=== PATIENT | female | born 1960 | race Caucasian/White ===

== ENCOUNTER → 2016-07-17 | Outpatient (CLI) | payer MEDICARE, OTHER ==
[~2016-07-17] MED LIST: AMIT50TA3 PO; AMLO5TAB2 PO; ASPI1POW10 PO; ASPI1TAB69 PO; ASPI325T PO; BENA25TA3 PO; ESOM1CAP6 PO; FURO1TAB62 PO; GABA600T PO; LEVO125T4 PO; LOVA20TA PO; METF-382 PO; MORP15TA73 PO; MORP1TAB24 PO; MORP1TAB25 PO; POTA-245 PO; SUMA100T2 PO; VENL100T PO; VITACAP7 PO; ZOLM5TAB2 PO
[2016-07-17 11:07] LABS: APTT (PATIENT) 23.7 SEC (24.3-30.1); PROTHROMBIN TIME - PATIENT 10.8 SEC (9.8-11.6)
[2016-07-17 11:13] LABS: BACTERIA, URINE RARE /hpf; BLOOD, URINE SMALL (NEG); GLUCOSE,URINE NEG (NEG); KETONE, URINE NEG (NEG); NITRITE,URINE NEG (NEG); PH, URINE 7.5 (5.0-8.5); SQUAMOUS EPITHELIAL CELL URINE 1 /hpf (0-5); URINE COLOR YELLOW (YELLW/STRAW)
[2016-07-17 11:14] LABS: COMMENT (UR) CULT NOT INDICATED; CULTURE IF INDICATED CULT NOT INDICATED
[2016-07-17 11:22] LABS: AUTOMATED NEUTROPHIL # 4.8 TH/MM3 (1.8-7.7); BASOPHIL # 0.1 TH/MM3 (0-0.2); BASOPHIL % 1.1 % (0.0-2.0); EOSINOPHIL # 0.2 TH/MM3 (0-0.4); HEMATOCRIT 39.9 % (35.0-46.0); HEMO FLAGS DIFF FINAL; LYMPH % 28.5 % (9.0-44.0); LYMPHOCYTE # 2.2 TH/MM3 (1.0-4.8); MEAN CORPUSCULAR HGB CONC 33.3 % (32.0-36.0); MONO % 4.6 % (0.0-8.0); NEUT % 62.8 % (16.0-70.0); PLATELET COUNT 376 TH/MM3 (150-450); RED BLOOD COUNT 4.75 MIL/MM3 (4.00-5.30); RED CELL DISTRIBUTION WIDTH 16.3 % (11.6-17.2); WHITE BLOOD COUNT 7.6 TH/MM3 (4.0-11.0)
[2016-07-17 11:28] LABS: ALKALINE PHOSPHATASE 112 U/L (45-117); ALT (GPT) 15 U/L (10-53); ANION GAP 7 MEQ/L (5-15); AST (GOT) 7 U/L (15-37); BICARBONATE 29.9 MEQ/L (21.0-32.0); BLOOD UREA NITROGEN 11 MG/DL (7-18); CHLORIDE 106 MEQ/L (98-107); GLOMERULAR FILTRATION RATE 51 ML/MIN (>89); GLUCOSE,FASTING 99 MG/DL (74-99); POTASSIUM 4.5 MEQ/L (3.5-5.1); SODIUM (NA) 143 MEQ/L (136-145); TOTAL BILIRUBIN ADULT 0.3 MG/DL (0.2-1.0)
--- NOTE | 2016-07-17 12:08 | RADRPT ---
EXAM DATE/TIME: 07/17/2016 11:37 [place] COMPARISON: No previous studies available for comparison. INDICATIONS : Evaluate for pneumonia, pneumothorax, and communicable disease. Preop for spinal stimulator replaceme nt. MEDICAL HISTORY : None. SURGICAL HISTORY : Spinal stimulator. ENCOUNTER: Initial ACUITY: 1 day PAIN SCORE: 0/10 LOCATION: Bilateral chest FINDINGS: PA and lateral views of the chest demonstrate the lungs to be symmetrically aerated without evidence of mass, infiltrate or effusion. The cardiomediastinal contours are unremarkable. Spinal stimulator is noted. No rib fractures are seen on the right. CONCLUSION: No acute disease. Eulogio Pickering MD FACR on July 17, 2016 at 12:05 Board Certified Radiologist. This report was verified electronically.
--- NOTE | 2016-07-17 14:54 | EKG ---
Date Performed: 07/17/2016 Time Performed: 10:55:27 PTAGE: 56 years EKG: Sinus rhythm LOW QRS VOLTAGE IN PRECORDIAL LEADS PATTERN CONSISTENT WITH PULMONARY DISEASE ABNORMAL ECG NO PREVIOUS TRACING DOCTOR: Chadwick Jimenez Interpretating Date/Time 07/17/2016 14:53:03
== END ==
LOC: CPRE 10:17
PROVIDERS: ATTEND Neurological Surgery
DX: Z01.810 Encounter for preprocedural cardiovascular examination (principal); Z18.12 Retained nonmagnetic metal fragments; G89.4 Chronic pain syndrome; R94.31 Abnormal electrocardiogram [ECG] [EKG]
CPT/HCPCS: 36415; 71020; 80053; 81001; 85025; 85610; 85730; 93005

== ENCOUNTER → 2016-07-23 | Day surgery (SDC) | payer MEDICARE, OTHER ==
[~2016-07-23] VITALS: Ht 162.6 cm; Wt 111.7 kg
[~2016-07-23] MED LIST changes: +ACETAMINOPHEN 1000 MG/100 ML VIAL IV ONE; +ARTIFICIAL TEARS OPTH OINT 3.5 APPLIC/3.5 GM TUBO ONE; +BUPIVACAINE HCL PF 0.5% 30 ML VIAL ONE; +CLINDAMYCIN INJ 600 MG in SODIUM CHLORIDE 0.9% INJ 100 ML IV SCH; +FAMOTIDINE 20 MG/2 ML VIAL ONE; +GELFOAM SIZE 100 ONE; +INSULIN HUMAN REGULAR 1,000 UNITS/10 ML VIAL SQ PRN; +KETAMINE HCL 500 MG/5 ML VIAL ONE; +LACTATED RINGER'S 1000 ML IV SCH; +LIDOCAINE 1%/EPINEPHrine 1:100,000 SOLN 30 ML VIAL ONE; +METOPROLOL TARTRATE 25 MG TAB PO PRN; +MIDAZOLAM HCL 2 MG/2 ML VIAL ONE; +PROPOFOL 200 MG/20 ML AMP IV ONE; +RESP: ALBUTEROL 2.5 MG/IPRATROPIUM 0.5 MG NEB (SCH) ONE; +SODIUM CHLORID 0.9% 500 ML IV SCH; +SODIUM CHLORIDE 0.9% INJ 100 ML ONE; +THROMBIN (TOPICAL) 5,000 UNIT VIAL ONE; -ZOLM5TAB2 PO; +fentaNYL CITRATE 250 MCG/5 ML AMP ONE
[2016-07-23 07:03] VITALS: BP 124/70; PULSE 75; RESP 18; TEMP 98.1; O2SAT 98
[2016-07-23 10:30] VITALS: BP 131/79; PULSE 89; RESP 16; TEMP 97.6; O2SAT 96
--- NOTE | 2016-07-26 13:45 | MP ---
cc: SAMUEL WHITFIELD MD, SANJAY S. M.D. DATE OF SURGERY: 07/23/2016. PREOPERATIVE DIAGNOSIS: Chronic pain syndrome. POSTOPERATIVE DIAGNOSIS: Chronic pain syndrome. OPERATIVE PROCEDURE PERFORMED: Removal of Protege battery and replacement with a Proclaim size IPG from [facility], reference number is 3660, serial number [id number]. Expiration 06/28/2018. SURGEON: Samuel Whitfield MD. ANESTHESIA: MAC. INDICATIONS FOR THE PROCEDURE: The patient is a very pleasant 56-year-old lady with successful relief of back pain and leg pain with a Penta lead centered on T8-9. She had good pain relief until her battery started to have some connection problems, which could not be recaptured with reprogramming. The battery was also sometimes heating up. She was taken to the operating room for replacement with the Proclaim battery. DESCRIPTION OF THE PROCEDURE IN DETAIL: The patient was brought to the operating room and placed supine on the operating room table. Anesthesia made her comfortable and she position herself on her side. Her previous battery was placed in the lower back above the buttocks. It was removed for her convenience to the mid axillary line below the waist in the fat pad above the fascia. Both incisions were prepped with iodine then rinsed and then prepped with ChloraPrep and allowed to dry. Both incisions were infiltrated with 1% lidocaine with epinephrine in a one-to-one mixture with 0.5% Marcaine. A total of 40 mL of local was used during the case. The first incision was made at the posterior axillary line and measured 5 cm in length. The incision was made with a 15 blade and carried down through the subcutaneous dermis and fat with the monopolar cautery. Th small pocket approximating the size of the IPG was made with the monopolar cautery. The wound was irrigated. The previous Protege site was opened with a #15 blade. The battery was explanted. The leads were then tunneled with a shunt tunneler to the new IPG pocket. The connection was made with the new Proclaim IPG and secured with a torque screwdriver. Impedances were checked and were found to be in the 300 to 400 Ohm range. The IPG was then secured in its pocket. The wounds were closed at the dermis with 2-0 Vicryl sutures and at the skin level with 4-0 Monocryl. Steri-Strips were applied to the mid axillary pocket. Dermabond was used to the older incision. The wounds were then dressed with Telfa and Medipore tape. The patient was then allowed to be awake again and was taken to same day surgery alert and interactive for programming. ESTIMATED BLOOD LOSS: Estimated at 1-2 mL. MD Tate MeeksYG/GLENN /10:23 AM /1:28 PM SHELBI
== END | disposition home or self-care (01) ==
LOC: HSDC 06:03
PROVIDERS: ATTEND Neurological Surgery
DX: T85.192A Other mechanical complication of implanted electronic neurostimulator of spinal cord electrode (lead), initial encounter (principal); M54.5 Low back pain; G89.4 Chronic pain syndrome; I10 Essential (primary) hypertension; E11.9 Type 2 diabetes mellitus without complications
CPT/HCPCS: 00300; 63685; 86850; 86900; 86901; 94664; C1767; J0131; J2250; J3010; J7120

== ENCOUNTER 2018-06-09 19:37 | Inpatient (IN) ==
--- NOTE | 2018-06-09 20:13 | ED ---
HPI General Chief Complaint: Neuro Symptoms/Deficit Stated Complaint: Neuro Time Seen by Provider: 06/09/18 19:54 Source: patient and family Mode of arrival: wheelchair Limitations: physical limitation History of Present Illness HPI Narrative: 58 years old female was brought in by her daughter by private vehicle with complaints of slurred speech, left-sided facial drooping left arm and left leg weakness. Patient states that she having generalized malaise and weakness since yesterday. Patient complained of aching headache since last night. Patient does not have any idea how long her symptoms of slurred speech, left-sided facial drooping and left arm left leg weakness started. Patient's daughter noticed the symptoms this morning at 6 AM. Patient's daughter reported no history of CVA in the past. Patient has history hypertension, diabetes, hyperlipidemia. Patient denies any history of atrial fibrillation. Patient denies any history of recent injury. Patient has been taking BC powder at home which had 1000 mg aspirin daily. Last dose of BC powder was this afternoon. Patient has chronic back pain and has spinal neurostimulator in place. Patient also has history of hypothyroidism and Guillain-Adams Onset (ago): hour(s) Timing confirmed by: family member Location: Reports speech, left face, left arm and left leg History of same: No Severity: moderate Quality: Reports weak Relieving factors: none Exacerbating factors: none Context: Reports sudden onset On Anticoagulants: No Associated symptoms: Reports headaches, malaise and weakness Treatments Prior to Arrival: Reports Aspirin Related Data Home Medications Medication Instructions Recorded Confirmed amitriptyline 50 mg PO DAILY 06/09/18 06/09/18 esomeprazole magnesium [Nexium] 40 mg PO DAILY 06/09/18 06/09/18 furosemide 20 mg PO DAILY 06/09/18 06/09/18 gabapentin 600 mg PO TID 06/09/18 06/09/18 levothyroxine 150 mcg PO DAILY 06/09/18 06/09/18 losartan 50 mg PO DAILY 06/09/18 06/09/18 lovastatin 40 mg PO QPM 06/09/18 06/09/18 metformin 1,000 mg PO BID 06/09/18 06/09/18 morphine 15 mg PO Q6H 06/09/18 06/09/18 morphine 60 mg PO Q8H 06/09/18 06/09/18 potassium chloride 10 meq PO BID 06/09/18 06/09/18 venlafaxine 150 mg PO DAILY 06/09/18 06/09/18 Allergies Allergy/AdvReac Type Severity Reaction Status Date / Time egg Allergy Severe Unverified 02/04/17 14:37 penicillin G Allergy Severe THROAT Unverified 02/04/17 14:37 SWELLS *MDRO Multi-Drug Resistant AdvReac Unknown Uncoded 08/08/16 11:28 Organism Review of Systems ROS: all other systems reviewed are negative PMFSH Medical History Medical History Chronic pain (Acute) Guillain-[place] (Acute) Hypothyroid (Acute) Social History Social History Smoking Status: Current every day smoker Tobacco Type: Cigarettes How Often Do You Have a Drink Containing Alcohol: Never Immunization History Tetanus Immunization: Unsure Exam Narrative Exam Narrative: GENERAL: Well-nourished, well-developed patient. SKIN: Focused skin assessment warm/dry. HEAD: Normocephalic. EYES: No scleral icterus. No injection or drainage. NECK: Supple, trachea midline. No JVD or lymphadenopathy. CARDIOVASCULAR: Regular rate and rhythm without murmurs, gallops, or rubs. RESPIRATORY: Breath sounds equal bilaterally. No accessory muscle use. GASTROINTESTINAL: Abdomen soft, non-tender, nondistended. MUSCULOSKELETAL: No cyanosis, or edema. BACK: Nontender without obvious deformity. No CVA tenderness. Neurologic exam: Patient with mild slurring speech. Patient has mild left- sided facial drooping including left side of low face. Patient has weakness of the left arm left leg. Mild decrease in light touch sensation left arm left leg. Patient is able to lift the left arm off the bed. Patient able to bend the left knee however unable to lift left leg off the bed. Visual field intact. Course Initial Documented Vital Signs Temperature 99.5 F 06/09/18 19:47 Pulse Rate 78 06/09/18 19:47 Respiratory Rate 18 06/09/18 19:47 Blood Pressure 123/60 06/09/18 19:47 Pulse Oximetry 95 06/09/18 19:47 Last Documented Vital Signs Temperature 99.5 F 06/09/18 19:47 Pulse Rate 67 06/09/18 20:54 Respiratory Rate 18 06/09/18 20:54 Blood Pressure 111/55 L 06/09/18 20:54 Pulse Oximetry 98 06/09/18 20:57 NIH Stroke Scale NIH Stroke Scale Level of Consciousness: 1-Drowsy Orientation Questions: 0-Answers both correct Responds to Commands: 0-Both tasks correct Gaze Eye Movement: 0-Horizontal movement WNL Visual George: 0-No visual field defect Facial Movement: 1-Minor facial palsy Motor Functions Arm LEFT: 0-No drift Motor Functions Arm RIGHT: 0-No drift Motor Functions Leg LEFT: UN-Amputated/Joint fusion Motor Functions Leg RIGHT: 0-No drift Limb Ataxia: 0-No ataxia Sensory Loss: 1-Mild sensory loss Best Language: 0-Normal Articulation: 0-Normal Extinction or Inattention Sensory: 0-Absent Total: 3 Medical Decision Making MDM Narrative Medical decision making narrative: 58 years old female with slurred speech, left facial drooping, left arm left leg weakness. Symptoms noticed by her daughter this morning around 6 AM. Patient came to the ED this evening. Patient is unable to tell me when the symptoms started. Stroke alert was called. Normal saline solution 100 cc an hour. Head of bed flat. O2 2 L nasal cannula. Patient took BC powder which has 1000 mg of aspirin prior to arrival. Patient has spinal nerve stimulator in place unable to perform MRI. Medical Screen Exam Complete: Yes Emergency Medical Condition: Yes Differential Diagnosis Differential Diagnosis: Differential diagnosis including acute CVA, neuropathy. Lab Data Lab results reviewed: Yes I reviewed the patient's lab results. Result diagrams: 06/09/18 19:50 06/09/18 19:50 Lab Results 06/09/18 06/09/18 06/09/18 Range/Units 19:49 19:50 19:50 WBC 8.8 (4.0-11.0) th/mm3 RBC 4.26 (4.00-5.30) mil/mm3 Hgb 11.8 (11.6-15.3) gm/dL POC Hgb (Calc) (11.6-15.3) g/dL Hct 36.2 (35.0-46.0) % POC Hct (35-46.0) % MCV 85.0 (80.0-100.0) fL MCH 27.6 (27.0-34.0) pg MCHC 32.5 (32.0-36.0) % RDW 17.7 H (11.6-17.2) % Plt Count 399 (150-450) th/mm3 MPV 7.8 (7.0-11.0) fL Neut % (Auto) 62.6 (16.0-70.0) % Lymph % (Auto) 26.2 (9.0-44.0) % [place] % (Auto) 6.1 (0.0-8.0) % Eos % (Auto) 3.8 (0.0-4.0) % Baso % (Auto) 1.3 (0.0-2.0) % Neut # (Auto) 5.5 (1.8-7.7) th/mm3 Lymph # (Auto) 2.3 (1.0-4.8) th/mm3 [place] # (Auto) 0.5 (0.0-0.9) th/mm3 Eos # (Auto) 0.3 (0.0-0.4) th/mm3 Baso # (Auto) 0.1 (0.0-0.2) th/mm3 WBC Differential . Differential Comment Auto diff final PT 10.2 (9.8-11.6) sec INR 1.0 Ratio APTT 26.0 (23.4-31.7) sec Fibrinogen 353 (227-377) mg/dL POC Sodium (137-144) mmol/L Sodium (136-145) meq/L POC Potassium (3.6-5.0) mmol/L Potassium (3.5-5.1) meq/L POC Chloride (102-111) mmol/L Chloride (98-107) meq/L Carbon Dioxide (21.0-32.0) meq/L Anion Gap (5-15) meq/L POC BUN (5-21) mg/dL BUN (7-18) mg/dL Creatinine (0.50-1.00) mg/dL POC Creatinine (0.6-1.3) mg/dL Estimated GFR (>89) mL/min POC Glucose 112 H (68-110) mg/dl Random Glucose (74-106) mg/dL Calcium (8.5-10.1) mg/dL Total Bilirubin (0.2-1.0) mg/dL AST (15-37) U/L ALT (10-53) U/L Alkaline Phosphatase (45-117) U/L Total Protein (6.4-8.2) g/dL Albumin (3.4-5.0) g/dL Urine Color (Yellw/Straw) Urine Clarity (Clear) Urine pH (5.0-8.5) Ur Specific [place] (1.002-1.035) Urine Protein (Neg-Trace) mg/dL Urine Glucose (UA) (Negative) mg/dL Urine Ketones (Negative) mg/dL Urine Occult Blood (Negative) Urine Nitrate (Negative) Urine Bilirubin (Negative) Urine Urobilinogen (Less than 2) mg/dL Ur Leukocyte Esterase (Negative) Urine RBC (0-3) /hpf Urine WBC (0-5) /hpf Urine WBC Clumps (None) Ur Squamous Epith Cells (0-5) /hpf Urine Bacteria (None) /hpf Micro UA Comment Ur Microscopic Review Urine Culture Comments Blood Type Antibody Screen 06/09/18 06/09/18 06/09/18 Range/Units 19:50 19:50 19:50 WBC (4.0-11.0) th/mm3 RBC (4.00-5.30) mil/mm3 Hgb (11.6-15.3) gm/dL POC Hgb (Calc) 12.9 (11.6-15.3) g/dL Hct (35.0-46.0) % POC Hct 38.0 (35-46.0) % MCV (80.0-100.0) fL MCH (27.0-34.0) pg MCHC (32.0-36.0) % RDW (11.6-17.2) % Plt Count (150-450) th/mm3 MPV (7.0-11.0) fL Neut % (Auto) (16.0-70.0) % Lymph % (Auto) (9.0-44.0) % [place] % (Auto) (0.0-8.0) % Eos % (Auto) (0.0-4.0) % Baso % (Auto) (0.0-2.0) % Neut # (Auto) (1.8-7.7) th/mm3 Lymph # (Auto) (1.0-4.8) th/mm3 [place] # (Auto) (0.0-0.9) th/mm3 Eos # (Auto) (0.0-0.4) th/mm3 Baso # (Auto) (0.0-0.2) th/mm3 WBC Differential Differential Comment PT (9.8-11.6) sec INR Ratio APTT (23.4-31.7) sec Fibrinogen Cancelled (227-377) mg/dL POC Sodium 137 (137-144) mmol/L Sodium 135 L (136-145) meq/L POC Potassium 4.7 (3.6-5.0) mmol/L Potassium 4.7 (3.5-5.1) meq/L POC Chloride 100 L (102-111) mmol/L Chloride 103 (98-107) meq/L Carbon Dioxide 27.5 (21.0-32.0) meq/L Anion Gap 5 (5-15) meq/L POC BUN 26 H (5-21) mg/dL BUN 26 H (7-18) mg/dL Creatinine 1.61 H (0.50-1.00) mg/dL POC Creatinine 1.7 H (0.6-1.3) mg/dL Estimated GFR 33 L (>89) mL/min POC Glucose 100 (68-110) mg/dl Random Glucose 97 (74-106) mg/dL Calcium 8.2 L (8.5-10.1) mg/dL Total Bilirubin 0.2 (0.2-1.0) mg/dL AST 17 (15-37) U/L ALT 20 (10-53) U/L Alkaline Phosphatase 96 (45-117) U/L Total Protein 7.7 (6.4-8.2) g/dL Albumin 3.7 (3.4-5.0) g/dL Urine Color (Yellw/Straw) Urine Clarity (Clear) Urine pH (5.0-8.5) Ur Specific [place] (1.002-1.035) Urine Protein (Neg-Trace) mg/dL Urine Glucose (UA) (Negative) mg/dL Urine Ketones (Negative) mg/dL Urine Occult Blood (Negative) Urine Nitrate (Negative) Urine Bilirubin (Negative) Urine Urobilinogen (Less than 2) mg/dL Ur Leukocyte Esterase (Negative) Urine RBC (0-3) /hpf Urine WBC (0-5) /hpf Urine WBC Clumps (None) Ur Squamous Epith Cells (0-5) /hpf Urine Bacteria (None) /hpf Micro UA Comment Ur Microscopic Review Urine Culture Comments Blood Type Antibody Screen 06/09/18 06/09/18 Range/Units 19:50 20:52 WBC (4.0-11.0) th/mm3 RBC (4.00-5.30) mil/mm3 Hgb (11.6-15.3) gm/dL POC Hgb (Calc) (11.6-15.3) g/dL Hct (35.0-46.0) % POC Hct (35-46.0) % MCV (80.0-100.0) fL MCH (27.0-34.0) pg MCHC (32.0-36.0) % RDW (11.6-17.2) % Plt Count (150-450) th/mm3 MPV (7.0-11.0) fL Neut % (Auto) (16.0-70.0) % Lymph % (Auto) (9.0-44.0) % [place] % (Auto) (0.0-8.0) % Eos % (Auto) (0.0-4.0) % Baso % (Auto) (0.0-2.0) % Neut # (Auto) (1.8-7.7) th/mm3 Lymph # (Auto) (1.0-4.8) th/mm3 [place] # (Auto) (0.0-0.9) th/mm3 Eos # (Auto) (0.0-0.4) th/mm3 Baso # (Auto) (0.0-0.2) th/mm3 WBC Differential Differential Comment PT (9.8-11.6) sec INR Ratio APTT (23.4-31.7) sec Fibrinogen (227-377) mg/dL POC Sodium (137-144) mmol/L Sodium (136-145) meq/L POC Potassium (3.6-5.0) mmol/L Potassium (3.5-5.1) meq/L POC Chloride (102-111) mmol/L Chloride (98-107) meq/L Carbon Dioxide (21.0-32.0) meq/L Anion Gap (5-15) meq/L POC BUN (5-21) mg/dL BUN (7-18) mg/dL Creatinine (0.50-1.00) mg/dL POC Creatinine (0.6-1.3) mg/dL Estimated GFR (>89) mL/min POC Glucose (68-110) mg/dl Random Glucose (74-106) mg/dL Calcium (8.5-10.1) mg/dL Total Bilirubin (0.2-1.0) mg/dL AST (15-37) U/L ALT (10-53) U/L Alkaline Phosphatase (45-117) U/L Total Protein (6.4-8.2) g/dL Albumin (3.4-5.0) g/dL Urine Color Yellow (Yellw/Straw) Urine Clarity Hazy H (Clear) Urine pH 5.0 (5.0-8.5) Ur Specific [place] 1.016 (1.002-1.035) Urine Protein Negative (Neg-Trace) mg/dL Urine Glucose (UA) Negative (Negative) mg/dL Urine Ketones Negative (Negative) mg/dL Urine Occult Blood Small H (Negative) Urine Nitrate Positive H (Negative) Urine Bilirubin Negative (Negative) Urine Urobilinogen Less than 2 (Less than 2) mg/dL Ur Leukocyte Esterase Large H (Negative) Urine RBC 2 (0-3) /hpf Urine WBC 45 H (0-5) /hpf Urine WBC Clumps Rare H (None) Ur Squamous Epith Cells <1 (0-5) /hpf Urine Bacteria Few H (None) /hpf Micro UA Comment Culture indicated Ur Microscopic Review Not Reportable Urine Culture Comments Culture indicated Blood Type O Positive Antibody Screen Negative Imaging Data Attestation: I personally reviewed and interpreted this imaging study as follows : Radiologist's impression: Head CT 06/09/18 19:54 CONCLUSION: 1. Negative CT Head non contrast. Report was called by [Dr. Bright to Dr. Kenny at 8:11 PM on June 09, 2018. ] Chest X-Ray 06/09/18 19:59 CONCLUSION: Clear lungs. Head CTA 06/09/18 20:04 CONCLUSION: 1. Negative CTA Head. Report was called by [Dr. Bright to Dr. Anders at 8:20 PM on June 09, 2018. ] Neck CTA 06/09/18 20:04 CONCLUSION: 1. Negative CTA Carotid. 2. Report called to Dr. Anders at 8:20 PM on June 09, 2018. Discharge Plan Discharge Disposition Patient Disposition: ED Admit(ED Internal Use Only) Discharge Details Diagnosis: Acute cerebrovascular accident (CVA) Physicians Team ED Provider: Amado Kenny Primary Care Provider: Fady Kelly Rxs /Orders / Referrals /Forms Prescriptions: No Action losartan 50 mg Tablet 50 mg PO DAILY RF: 0 gabapentin 600 mg Tablet 600 mg PO TID RF: 0 lovastatin 40 mg Tablet 40 mg PO QPM RF: 0 venlafaxine 150 mg Capsule,Extended Release 24hr 150 mg PO DAILY RF: 0 potassium chloride 10 mEq Tablet Extended Release 10 meq PO BID RF: 0 amitriptyline 25 mg Tablet 50 mg PO DAILY RF: 0 morphine 60 mg Tablet Extended Release 60 mg PO Q8H RF: 0 metformin 1,000 mg Tablet 1,000 mg PO BID RF: 0 esomeprazole magnesium [Nexium] 40 mg Capsule,Delayed Release(Dr/Ec) 40 mg PO DAILY RF: 0 levothyroxine 150 mcg Tablet 150 mcg PO DAILY RF: 0 furosemide 20 mg Tablet 20 mg PO DAILY RF: 0 morphine 15 mg Tablet 15 mg PO Q6H RF: 0 Discharge Interventions Interventions: Vital Signs Last Done: 06/09/18 20:54 Status ED Status: With Doctor
[2018-06-09] MEDS ORDERED: Sod Chloride 0.9% Inj 1,000 ML IV.CONT SCH (20:15)
--- NOTE | 2018-06-09 20:15 | CT ---
EXAM DATE: 06/09/2018 8:09 PM EST AGE/SEX: 58 years / Female INDICATIONS: Stroke alert, left sided facial droop and weakness, slurred speech. CLINICAL DATA: This is the patient's initial encounter. Patient reports that signs and symptoms have been present for 1 day and indicates a pain score of Nonresponsive. MEDICAL/SURGICAL HISTORY: Non-responsive. Non-responsive. RADIATION DOSE: 56.35 CTDI (mGy) COMPARISON: [facility], CTA HEAD W CONTRAST W 3D, 06/09/2018. . TECHNIQUE: CT of the head without contrast. Using automated exposure control and adjustment of the mA and/or kV according to patient size, radiation dose was kept as low as reasonably achievable to ob tain optimal diagnostic quality images. DICOM format image data is available electronically for revi ew and comparison. FINDINGS: CSF spaces, ventricles and cisterns are of normal size and configuration. No definite evidence of int racranial hemorrhage, mass or acute infarct. No midline shift or mass effect is seen. CONCLUSION: 1. Negative CT Head non contrast. Report was called by [Dr. Bright to Dr. Kenny at 8:11 PM on June 09, 2018. ] Electronically signed by: Lino Bright MD Board Certified Radiologist 06/09/2018 8:14 PM EST
[2018-06-09 20:22] LABS: Baso # (Auto) 0.1 th/mm3 (0.0-0.2); Baso % (Auto) 1.3 % (0.0-2.0); Eos # (Auto) 0.3 th/mm3 (0.0-0.4); Eos % (Auto) 3.8 % (0.0-4.0); Hematocrit 36.2 % (35.0-46.0); Hemoglobin 11.8 gm/dL (11.6-15.3); Lymph # (Auto) 2.3 th/mm3 (1.0-4.8); Lymph % (Auto) 26.2 % (9.0-44.0); Mean Corpuscular HGB Conc 32.5 % (32.0-36.0); Mean Corpuscular Hemoglobin 27.6 pg (27.0-34.0); Mean Platelet Volume 7.8 fL (7.0-11.0); Mono # (Auto) 0.5 th/mm3 (0.0-0.9); Mono % (Auto) 6.1 % (0.0-8.0); Neut # (Auto) 5.5 th/mm3 (1.8-7.7); Neut % (Auto) 62.6 % (16.0-70.0); Platelet Count 399 th/mm3 (150-450); Red Blood Count 4.26 mil/mm3 (4.00-5.30); Red Cell Distribution Width 17.7 % (11.6-17.2); White Blood Count 8.8 th/mm3 (4.0-11.0)
--- NOTE | 2018-06-09 20:26 | XR ---
EXAM DATE: 06/09/2018 8:20 PM EST AGE/SEX: 58 years / Female INDICATIONS: Stroke alert. CLINICAL DATA: This is the patient's initial encounter. Patient reports that signs and symptoms have been present for 1 day and indicates a pain score of Nonresponsive. MEDICAL/SURGICAL HISTORY: None. . Spinal stimulator. [place] [facility] [place]. . FINDINGS: A single AP view of the chest demonstrates the lungs to be symmetrically aerated without evidence of mass, infiltrate or effusion. The cardiomediastinal contours are unremarkable. Osseous structures a re intact. Spinal stimulator leads are identified as before. CONCLUSION: Clear lungs. Electronically signed by: Lino Bright MD Board Certified Radiologist 06/09/2018 8:25 PM EST
--- NOTE | 2018-06-09 20:26 | CT ---
EXAM DATE: 06/09/2018 8:16 PM EST AGE/SEX: 58 years / Female INDICATIONS: Stroke alert, left sided facial droop and weakness, slurred speech. CLINICAL DATA: This is the patient's initial encounter. Patient reports that signs and symptoms have been present for 1 day and indicates a pain score of Nonresponsive. MEDICAL/SURGICAL HISTORY: Non-responsive. Non-responsive. RADIATION DOSE: 10.04 CTDI (mGy) ; Combined studies [place] [facility] [place]. [facility] [place] 3D, [place]. [facility] [place] 3[place], 06/09/2018. . TECHNIQUE: Volumetric scanning was performed using a multi-row detector CT scanner during bolus infu annemarie of 80 ml Visipaque 320 (iodixanol) nonionic water-soluble contrast as a cumulative dose for mul tiple exams. The data was post processed with a variety of visualization algorithms including full volume maximum intensity projection, multi-planar sliding thin slab reformation, curved planar reform ation, and surface rendering techniques. Using automated exposure control and adjustment of the mA a nd/or kV according to patient size, radiation dose was kept as low as reasonably achievable to obtain optimal diagnostic quality images. DICOM format image data is available electronically for review a nd comparison. FINDINGS: There is excellent visualization of the major intracranial arteries out to the second-order branch ve ssels. There is no evidence for aneurysm, vessel truncation or stenosis, and no evidence for vascula r malformation. CONCLUSION: 1. Negative CTA Head. Report was called by [Dr. Bright to Dr. Anders at 8:20 PM on June 09, 2018. ] Electronically signed by: Lino Bright MD Board Certified Radiologist 06/09/2018 8:24 PM EST
--- NOTE | 2018-06-09 20:30 | CT ---
EXAM DATE: 06/09/2018 8:25 PM EST AGE/SEX: 58 years / Female INDICATIONS: Stroke alert, left sided facial droop and weakness, slurred speech. CLINICAL DATA: This is the patient's initial encounter. Patient reports that signs and symptoms have been present for 1 day and indicates a pain score of Nonresponsive. MEDICAL/SURGICAL HISTORY: Non-responsive. Non-responsive. RADIATION DOSE: 10.04 CTDI (mGy) ; Combined studies COMPARISON: [facility], CTA HEAD W CONTRAST W 3D, 06/09/2018. C, CT HEAD W/O CONTRAST, 06/09/2018. . TECHNIQUE: Volumetric scanning was performed using a multirow detector CT scanner during bolus infus ion of 80 ml Visipaque 320 (iodixanol) nonionic water-soluble contrast as a cumulative dose for mult iple exams. The data was postprocessed with a variety of visualization algorithms including full-vo lume maximum intensity projection, multiplanar sliding thin-slab reformation, curved-planar reformati on, and surface-rendering techniques. Using automated exposure control and adjustment of the mA and/ or kV according to patient size, radiation dose was kept as low as reasonably achievable to obtain op timal diagnostic quality images. DICOM format image data is available electronically for review and comparison. Percent stenosis is calculated using the diameter of the stenotic region over the diameter of the nor mal distal internal carotid artery. FINDINGS: Aortic Arch: There is a three-vessel origin of the great vessels from the aorta. No evidence of ost ial narrowing Right Carotid: The common carotid artery is intact. The carotid bulb has a normal configuration wit hout ulceration or narrowing. The internal carotid artery lumen is smooth without stenosis. The ext ernal carotid artery is intact. Left Carotid: The common carotid artery is intact. The carotid bulb has a normal configuration with out ulceration or narrowing. The internal carotid artery lumen is smooth without stenosis. The exte rnal carotid artery is intact. Vertebrals: The vertebral arteries have a symmetric diameter. No stenotic lesions are seen. CONCLUSION: 1. Negative CTA Carotid. 2. Report called to Dr. Anders at 8:20 PM on June 09, 2018. Electronically signed by: Lino Bright MD Board Certified Radiologist 06/09/2018 8:28 PM EST
[2018-06-09 20:36] LABS: Prothrombin Time 10.2 sec (9.8-11.6)
[2018-06-09 20:39] LABS: Alanine Aminotransferase 20 U/L (10-53); Albumin 3.7 g/dL (3.4-5.0); Anion Gap 5 meq/L (5-15); Aspartate Aminotransferase 17 U/L (15-37); Blood Urea Nitrogen 26 mg/dL (7-18); Calcium 8.2 mg/dL (8.5-10.1); Carbon Dioxide 27.5 meq/L (21.0-32.0); Chloride 103 meq/L (98-107); Glomerular Filtration Rate 33 mL/min (>89); Glucose,Random 97 mg/dL (74-106); Potassium 4.7 meq/L (3.5-5.1); Sodium 135 meq/L (136-145)
[2018-06-09 20:42] LABS: Alkaline Phosphatase 96 U/L (45-117); Total Protein 7.7 g/dL (6.4-8.2)
[2018-06-09 21:20] LABS: Bacteria,Urine Few /hpf; Bilirubin,Urine Negative (Negative); Clarity,Urine Hazy (Clear); Color,Urine Yellow (Yellw/Straw); Glucose,Urine (UA) Negative (Negative); Leukocyte Esterase,Urine Large (Negative); Nitrite,Urine Positive (Negative); Specific Gravity,Urine 1.016 (1.002-1.035); Squamous Epithelial Cell,Urine <1 /hpf (0-5)
[2018-06-09] MEDS ORDERED: Dextrose 50% in Water 50 ML Vial IV.PUSH PRN (21:42)
--- NOTE | 2018-06-09 22:26 | P.HP ---
History of Present Illness Service: [facility] Primary Care Physician: Fady Kelly MD History of Present Illness: 58-year-old female with a past medical history significant for hypertension, hyperlipidemia, hypothyroidism, chronic back pain with spinal stimulator, diabetes mellitus, history of Guyon Adams and neuropathy presents to the emergency department for the evaluation of confusion and weakness. The patient reports that her symptoms began last night with confusion and headache. Her daughter, who is bedside, reports that her mother began acting confused and forgetting recent conversations starting early this morning. The patient reports she has dizziness which she describes as constant and states that it is "like being on a boat". Around 6:00 this morning the patient began to notice left upper and lower extremity weakness and was unable to ambulate as she could not lift her left leg. Her daughter states she had left sided ptosis and facial droop with accompanying slurred speech. The patient denies any chest pain or shortness of breath. No abdominal pain. No nausea/vomiting/diarrhea. No fever/chills. Inpatient Certification: I certify that the inpatient services were ordered in accordance with Medicare regulations governing the order. This includes certification that hospital inpatient services are reasonable and necessary and in the case of services not specified as inpatient-only under 42 CFR 419.22(n), that they are appropriately provided as inpatient services in accordance to with the 2-midnight benchmark under 43 CFR 412.3(e) Estimated Total Length of Stay (Days): 2 Plans for Post Hospital Care: Not yet determined Review of Systems All other systems reviewed negative except as stated in [facility] - History History Provided By: Patient, Family Member - Medical History Medical History: Medical History (Last Updated 06/09/18 @ 22:16 by Liz Soto MD) Chronic pain Diabetes mellitus Guillain-Hext History of hysterectomy Hyperlipidemia Hypertension Hypothyroid Nephrolithiasis Neuropathy - Surgical History Surgical History: Surgical History (Last Updated 06/09/18 @ 22:16 by Liz Soto MD) History of cardiac catheterization Status post insertion of spinal cord stimulator - Family History Family History: Family History (Last Updated 06/09/18 @ 22:16 by Liz Soto MD) Other Coronary artery disease Diabetes mellitus - Social History I have reviewed the patient's Social History: Yes - Tobacco History Tobacco Use In Past 30 Days: Yes Smoking Status: Current every day smoker Tobacco Type: Cigarettes - Alcohol History How Often Do You Have a Drink Containing Alcohol: Never - Immunization History Tetanus Immunization: Unsure Medications and Allergies Active Medications: Active Medications Amitriptyline HCl (Elavil) 50 mg PO DAILY [facility] Aspirin (Aspirin) 325 mg PO DAILY [facility] Dextrose (D50w Vial) 50 ml IV.PUSH UNSCH PRN PRN Reason: PER HYPOGLYCEMIA PROTOCOL Furosemide (Lasix) 20 mg PO DAILY [facility] Glucagon (Glucagon Inj) 1 mg OTHER UNSCH PRN PRN Reason: for Hypoglycemia Protocol Sodium Chloride (Ns Inj) 1,000 mls @ 70 mls/hr IV.CONT .[id number] Y[facility]MIN Stop: 06/10/18 10:32 Last Admin: 06/09/18 20:33 Dose: 70 mls/hr Sodium Chloride (Ns Inj) 1,000 mls @ 70 mls/hr IV.CONT .[id number] [facility] Insulin Aspart (Novolog Insulin Correctional Sugar Inj) 0 unit SQ ACHS YASMIN; Protocol Levothyroxine Sodium (Synthroid) 150 mcg PO DAILY [facility] Non-Formulary Medication (Esomeprazole Magnesium [Nexium]) 40 mg PO DAILY [facility] Non-Formulary Medication (Gabapentin [Gabapentin]) 600 mg PO TID [facility] Non-Formulary Medication (Lovastatin [Lovastatin]) 40 mg PO QPM [facility] Non-Formulary Medication (Venlafaxine [Venlafaxine]) 150 mg PO DAILY [facility] Potassium Chloride (Klor-Con 10) 10 meq PO BID [facility] Sodium Chloride (Ns Flush) 2 ml IV.FLUSH BID YASMIN Sodium Chloride (Ns Flush) 2 ml IV.FLUSH PRN PRN PRN Reason: FLUSH AFTER USING IV ACCESS Allergies Allergy/AdvReac Type Severity Reaction Status Date / Time egg Allergy Severe Unverified 02/04/17 14:37 penicillin G Allergy Severe THROAT Unverified 02/04/17 14:37 SAGE *MDRO Multi-Drug Resistant AdvReac Unknown Uncoded 08/08/16 11:28 Organism Home Medications Medication Instructions Recorded Confirmed Type amitriptyline 50 mg PO DAILY 06/09/18 06/09/18 History esomeprazole magnesium [Nexium] 40 mg PO DAILY 06/09/18 06/09/18 History furosemide 20 mg PO DAILY 06/09/18 06/09/18 History gabapentin 600 mg PO TID 06/09/18 06/09/18 History levothyroxine 150 mcg PO DAILY 06/09/18 06/09/18 History losartan 50 mg PO DAILY 06/09/18 06/09/18 History lovastatin 40 mg PO QPM 06/09/18 06/09/18 History metformin 1,000 mg PO BID 06/09/18 06/09/18 History morphine 15 mg PO Q6H 06/09/18 06/09/18 History morphine 60 mg PO Q8H 06/09/18 06/09/18 History potassium chloride 10 meq PO BID 06/09/18 06/09/18 History venlafaxine 150 mg PO DAILY 06/09/18 06/09/18 History Exam Vital signs: Vital Signs 06/09/18 19:47 06/09/18 20:54 06/09/18 20:57 Temperature 99.5 F Pulse Rate 78 67 Respiratory Rate 18 18 Blood Pressure 123/60 111/55 L Pulse Oximetry 95 97 98 Narrative: Gen.: No acute distress Head: Normocephalic. Atraumatic. EENT: Pupils equal round and reactive to light. Nose without drainage. Airway intact. Throat without injection. Cardiovascular: Regular rate and rhythm. No murmurs, rubs or gallops. Respiratory: Lungs clear to auscultation bilaterally. No wheezes or rhonchi. Abdomen: Soft, nontender, nondistended. No peritoneal signs. Musculoskeletal: No gross deformities. No edema. Skin: No obvious rashes or erythema. Neuro: Left-sided ptosis, mild left-sided facial droop. Left hand groutman strength 3/5, left upper extremity strength 4/5, unable to raise left lower extremity off the bed or point or flex foot. Remainder strength 5/5 Results - Labs CBC & Chem 7: 06/09/18 19:50 06/09/18 19:50 Labs: Laboratory Results - last 24 hr 06/09/18 06/09/18 06/09/18 19:49 19:50 19:50 WBC 8.8 RBC 4.26 Hgb 11.8 POC Hgb (Calc) Hct 36.2 POC Hct MCV 85.0 MCH 27.6 MCHC 32.5 RDW 17.7 H Plt Count 399 MPV 7.8 Neut % (Auto) 62.6 Lymph % (Auto) 26.2 [place] % (Auto) 6.1 Eos % (Auto) 3.8 Baso % (Auto) 1.3 Neut # (Auto) 5.5 Lymph # (Auto) 2.3 [place] # (Auto) 0.5 Eos # (Auto) 0.3 Baso # (Auto) 0.1 WBC Differential . Differential Comment Auto diff final PT 10.2 INR 1.0 APTT 26.0 Fibrinogen 353 POC Sodium Sodium POC Potassium Potassium POC Chloride Chloride Carbon Dioxide Anion Gap POC BUN BUN Creatinine POC Creatinine Estimated GFR POC Glucose 112 H Random Glucose Calcium Total Bilirubin AST ALT Alkaline Phosphatase Total Protein Albumin Urine Color Urine Clarity Urine pH Ur Specific [place] Urine Protein Urine Glucose (UA) Urine Ketones Urine Occult Blood Urine Nitrate Urine Bilirubin Urine Urobilinogen Ur Leukocyte Esterase Urine RBC Urine WBC Urine WBC Clumps Ur Squamous Epith Cells Urine Bacteria Micro UA Comment Ur Microscopic Review Urine Culture Comments Blood Type Antibody Screen 06/09/18 06/09/18 06/09/18 19:50 19:50 19:50 WBC RBC Hgb POC Hgb (Calc) 12.9 Hct POC Hct 38.0 MCV MCH MCHC RDW Plt Count MPV Neut % (Auto) Lymph % (Auto) [place] % (Auto) Eos % (Auto) Baso % (Auto) Neut # (Auto) Lymph # (Auto) [place] # (Auto) Eos # (Auto) Baso # (Auto) WBC Differential Differential Comment PT INR APTT Fibrinogen Cancelled POC Sodium 137 Sodium 135 L POC Potassium 4.7 Potassium 4.7 POC Chloride 100 L Chloride 103 Carbon Dioxide 27.5 Anion Gap 5 POC BUN 26 H BUN 26 H Creatinine 1.61 H POC Creatinine 1.7 H Estimated GFR 33 L POC Glucose 100 Random Glucose 97 Calcium 8.2 L Total Bilirubin 0.2 AST 17 ALT 20 Alkaline Phosphatase 96 Total Protein 7.7 Albumin 3.7 Urine Color Urine Clarity Urine pH Ur Specific [place] Urine Protein Urine Glucose (UA) Urine Ketones Urine Occult Blood Urine Nitrate Urine Bilirubin Urine Urobilinogen Ur Leukocyte Esterase Urine RBC Urine WBC Urine WBC Clumps Ur Squamous Epith Cells Urine Bacteria Micro UA Comment Ur Microscopic Review Urine Culture Comments Blood Type Antibody Screen 06/09/18 06/09/18 19:50 20:52 WBC RBC Hgb POC Hgb (Calc) Hct POC Hct MCV MCH MCHC RDW Plt Count MPV Neut % (Auto) Lymph % (Auto) [place] % (Auto) Eos % (Auto) Baso % (Auto) Neut # (Auto) Lymph # (Auto) [place] # (Auto) Eos # (Auto) Baso # (Auto) WBC Differential Differential Comment PT INR APTT Fibrinogen POC Sodium Sodium POC Potassium Potassium POC Chloride Chloride Carbon Dioxide Anion Gap POC BUN BUN Creatinine POC Creatinine Estimated GFR POC Glucose Random Glucose Calcium Total Bilirubin AST ALT Alkaline Phosphatase Total Protein Albumin Urine Color Yellow Urine Clarity Hazy H Urine pH 5.0 Ur Specific [place] 1.016 Urine Protein Negative Urine Glucose (UA) Negative Urine Ketones Negative Urine Occult Blood Small H Urine Nitrate Positive H Urine Bilirubin Negative Urine Urobilinogen Less than 2 Ur Leukocyte Esterase Large H Urine RBC 2 Urine WBC 45 H Urine WBC Clumps Rare H Ur Squamous Epith Cells <1 Urine Bacteria Few H Micro UA Comment Culture indicated Ur Microscopic Review Not Reportable Urine Culture Comments Culture indicated Blood Type O Positive Antibody Screen Negative - Imaging Impressions Head CT 06/09/18 19:54 CONCLUSION: 1. Negative CT Head non contrast. Report was called by [Dr. Bright to Dr. Kenny at 8:11 PM on June 09, 2018. ] Chest X-Ray 06/09/18 19:59 CONCLUSION: Clear lungs. Head CTA 06/09/18 20:04 CONCLUSION: 1. Negative CTA Head. Report was called by [Dr. Bright to Dr. Anders at 8:20 PM on June 09, 2018. ] Neck CTA 06/09/18 20:04 CONCLUSION: 1. Negative CTA Carotid. 2. Report called to Dr. Anders at 8:20 PM on June 09, 2018. Caprini VTE Risk Assessment Caprini VTE Risk Assessment: No/Low Risk (score <= 1) Caprini Risk Assessment Model: Point Value = 1 Point Value = 2 Point Value = 3 Point Value = 5 Age 41-60 Minor surgery BMI > 25 kg/m2 Swollen legs Varicose veins or History of unexplained or recurrent spontaneous Oral contraceptives or hormone replacement Sepsis (< 1 month) Serious lung disease, including pneumonia (< 1 month) Abnormal pulmonary function Acute myocardial infarction Congestive heart failure (< 1 month) History of inflammatory bowel disease Medical patient at bed rest Age 61-74 Arthroscopic surgery Major open surgery (> 45 min) Laparoscopic surgery (> 45 min) Malignancy Confined to bed (> 72 hours) Immobilizing plaster cast Central venous access Age >= 75 History of VTE Family history of VTE Factor V Leiden Prothrombin [id number] Lupus anticoagulant Anticardiolipin antibodies Elevated serum homocysteine Heparin-induced thrombocytopenia Other congenital or acquired thrombophilia Stroke (< 1 month) Elective arthroplasty Hip, pelvis, or leg fracture Acute spinal cord injury (< 1 month) Prophylaxis Regimen: Total Risk Factor Score Risk Level Prophylaxis Regimen 0-1 Low Early ambulation 2 Moderate Order ONE of the following: *Sequential Compression Device (SCD) *Heparin 5000 units SQ BID 3-4 Higher Order ONE of the following medications: *Heparin 5000 units SQ TID *Enoxaparin/Lovenox 40 mg SQ daily (WT < 150 kg, CrCl > 30 mL/min) *Enoxaparin/Lovenox 30 mg SQ daily (WT < 150 kg, CrCl > 10-29 mL/min) *Enoxaparin/Lovenox 30 mg SQ BID (WT < 150 kg, CrCl > 30 mL/min) AND/OR *Sequential Compression Device (SCD) 5 or more Highest Order ONE of the following medications: *Heparin 5000 units SQ TID (Preferred with Epidurals) *Enoxaparin/Lovenox 40 mg SQ daily (WT < 150 kg, CrCl > 30 mL/min) *Enoxaparin/Lovenox 30 mg SQ daily (WT < 150 kg, CrCl > 10-29 mL/min) *Enoxaparin/Lovenox 30 mg SQ BID (WT < 150 kg, CrCl > 30 mL/min) AND *Sequential Compression Device (SCD) Assessment and Plan - Plan Assessment/plan: 1. Stroke alert Patient with left-sided weakness, facial droop, confusion Head CT, head and neck CTA negative for acute process Unable to complete MRI secondary to spinal stimulator Head of bed flat Neurology consulted, appreciate assistance Patient took BC powder with aspirin earlier today, continue daily aspirin PT/OT/speech 2. Diabetes mellitus Holding home metformin Sliding-scale insulin Monitor blood glucose 3. Chronic back pain Continue long-acting morphine 4. Hypertension/hyperlipidemia/hypothyroidism/neuropathy Continue home medications 5. Acute kidney injury Creatinine 1.61, baseline 1.1 IV fluid hydration Monitor renal function FEN N.p.o. NS at 70 cc/hour Electrolytes: Monitor and replete as needed
[2018-06-09] MEDS: Morphine Sulfate 60 MG SR Tablet PO SCH (23:18)
[2018-06-10] MEDS: Sod Chloride 0.9% Inj 1,000 ML IV.CONT SCH ×2 (00:10→12:21)
[2018-06-10] MEDS: Acetaminophen 325 MG Tablet PO PRN ×3 (03:56→21:06)
[2018-06-10] MEDS: Morphine Sulfate 60 MG SR Tablet PO SCH ×3 (06:31→22:07)
[2018-06-10] MEDS: Levothyroxine 150 MCG Tablet PO SCH (06:31)
[2018-06-10 07:41] LABS: Calcium 7.5 mg/dL (8.5-10.1); Carbon Dioxide 24.9 meq/L (21.0-32.0); Potassium 4.6 meq/L (3.5-5.1)
[2018-06-10] MEDS: Insulin NovoLOG Aspart Correctional Sugar Inj SQ SCH ×4 (08:11→21:06)
[2018-06-10] MEDS ORDERED: Non-Formulary Drug (Venlafaxine [Venlafaxine] 150 MG) PO SCH (09:00)
[2018-06-10] MEDS: Gabapentin 300 MG Capsule PO SCH ×3 (10:28→17:05)
[2018-06-10] MEDS: Venlafaxine XR 75 MG Capsule PO SCH (10:28)
[2018-06-10] MEDS: Amitriptyline 25 MG Tablet PO SCH (10:29)
[2018-06-10] MEDS: Aspirin 325 MG Tablet PO SCH (10:29)
[2018-06-10] MEDS: Furosemide 20 MG Tablet PO SCH (10:30)
[2018-06-10 12:15] LABS: Hemoglobin A1c 6.4 % (4.3-6.0)
--- NOTE | 2018-06-10 13:02 | P.PNIM ---
Subjective Interval history: Follow up for possible stroke. Currently resting in bed. She wants to use the bathroom. Denies any chest pain, shortness of breath, fever or chills. Son is at bedside. Physical Exam Vital signs: Last Vital Signs Temp 99.0 F 06/10/18 12:00 Pulse 84 06/10/18 12:23 Resp 20 06/10/18 12:00 BP 96/55 L 06/10/18 12:00 Pulse Ox 98 06/10/18 12:00 Intake & Output 06/08/18 06/09/18 06/10/18 06/11/18 06:59 06:59 06:59 06:59 Intake Total 1999 / 1999 Output Total 250 / 250 Balance 1750 / 1750 Weight 116.8 kg GENERAL: Alert, oriented x3, NAD. SKIN: Warm and dry. HEAD: Normocephalic. EYES: No scleral icterus. No injection or drainage. NECK: Supple, trachea midline. No JVD or lymphadenopathy. CARDIOVASCULAR: Regular rate and rhythm without murmurs, gallops, or rubs. RESPIRATORY: Breath sounds equal bilaterally. No accessory muscle use. GASTROINTESTINAL: Abdomen soft, non-tender, nondistended. MUSCULOSKELETAL: No cyanosis, or edema. Neurological: Left arm 3 out of 5 and left leg 3 out of 5. No other focal neurological deficits noted. BACK: Nontender without obvious deformity. No CVA tenderness. Results Labs CBC & Chem 7: 06/09/18 19:50 06/10/18 05:38 Labs: Microbiology 06/09/18 20:52 Clean Catch Urine Urine Culture - Preliminary gram negative rods Imaging Imaging: Impressions Head CT 06/09/18 19:54 CONCLUSION: 1. Negative CT Head non contrast. Report was called by [Dr. Bright to Dr. Kenny at 8:11 PM on June 09, 2018. ] Chest X-Ray 06/09/18 19:59 CONCLUSION: Clear lungs. Head CTA 06/09/18 20:04 CONCLUSION: 1. Negative CTA Head. Report was called by [Dr. Bright to Dr. Anders at 8:20 PM on June 09, 2018. ] Neck CTA 06/09/18 20:04 CONCLUSION: 1. Negative CTA Carotid. 2. Report called to Dr. Anders at 8:20 PM on June 09, 2018. Assessment and Plan Plan Ms. Matos is a pleasant 58-year-old female with a history of hypertension, hyperlipidemia, hypothyroidism, diabetes mellitus chronic back pain, Guillain-Adams syndrome who was brought to the emergency department due to confusion and weakness. Patient also apparently had facial droop, slurred speech as well as left-sided weakness. She underwent CT studies. However MRI was not done due to presence of a spinal stimulator. Possible acute stroke Neurology consultation pending. Continue aspirin 325 mg p.o. daily, pravastatin 40 mg p.o. daily -PT/OT/Speech therapy. Diabetes mellitus Peripheral neuropathy Hypothyroidism Anxiety/Depression -Continue Gabapentin, Amitriptyline, Venlafaxine, Levothyroxine -Continue sliding scale insulin. Goal BG 140-180. -If needed, consider Levemir 5-7 units QHS. Full code. SCDs. Progress Note: Quality VTE Deep Vein Thrombosis/Pulmonary Embolism Present on Admission: No
--- NOTE | 2018-06-10 15:30 | ECG ---
Date Performed: 06/09/2018 Time Performed: 19:51:47 PTAGE: 58 years EKG: Sinus rhythm LOW QRS VOLTAGE IN PRECORDIAL LEADS Since the previous tracing, no significant change noted BORDERLI NE ECG NO PREVIOUS TRACING DOCTOR: Nikki Magallanes Interpretating Date/Time 06/10/2018 15:28:19
[2018-06-10] MEDS ORDERED: Non-Formulary Drug (Lovastatin [Lovastatin] 40 MG) PO SCH (18:00)
--- NOTE | 2018-06-10 18:34 | ECHRPT ---
Indication: CVA/TIA CONCLUSIONS Technically difficult study. The left ventricular systolic function is normal with an estimated ejection fraction in the range of 60-65%. There is trace tricuspid valve regurgitation. BP: / HR: Rhythm: Sinus MEASUREMENTS (Male / Female) Normal Values Technical Quality:Technically difficult study 2D ECHO LV Diastolic Diameter PLAX 5.0 cm 4.2 - 5.9 / 3.9 - 5.3 cm LV Systolic Diameter PLAX 3.4 cm IVS Diastolic Thickness 1.0 cm 0.6 - 1.0 / 0.6 - 0.9 cm LVPW Diastolic Thickness 1.1 cm 0.6 - 1.0 / 0.6 - 0.9 cm LV Relative Wall Thickness 0.4 RV Internal Dim ED PLAX 4.3 cm LVOT Diameter 1.8 cm Aortic Root Diameter 3.1 cm LA Systolic Diameter LX 3.8 cm 3.0 - 4.0 / 2.7 - 3.8 cm DOPPLER AV Peak Velocity 157.0 cm/s AV Peak Gradient 9.9 mmHg LVOT Peak Velocity 158.0 cm/s LVOT Peak Gradient 10.0 mmHg AV Area Cont Eq pk 2.6 cm TR Peak Velocity 164.0 cm/s TR Peak Gradient 10.8 mmHg Right Atrial Pressure 10.0 mmHg Pulmonary Artery Systolic Pressu 20.8 mmHg Right Ventricular Systolic Press 20.8 mmHg PV Peak Velocity 198.0 cm/s PV Peak Gradient 15.7 mmHg FINDINGS LEFT VENTRICLE Normal left ventricular size. Wall thickness is normal. The left ventricular systolic function is normal with an estimated ejection fraction in the range of 60-65%. No regional wall motion abnormalities are present. RIGHT VENTRICLE Normal right ventricular size and systolic function. LEFT ATRIUM The left atrial size is upper limits of normal. RIGHT ATRIUM The right atrial size is normal. ATRIAL SEPTUM Normal atrial septal thickness without atrial level shunting by limited color doppler interrogation. AORTA The aortic root and proximal ascending aorta are not well visualized. MITRAL VALVE Structurally normal mitral valve. No mitral valve regurgitation. No mitral valve stenosis. AORTIC VALVE Trileaflet aortic valve. No aortic valve stenosis or regurgitation. TRICUSPID VALVE Grossly normal There is trace tricuspid valve regurgitation. The estimated pulmonary arterial pressure is 21 mmHg. PULMONARY VALVE No pulmonary valve regurgitation or stenosis. VESSELS There is greater than 50% respiratory change in dimension of the inferior vena cava (normal). PERICARDIUM No pericardial effusion. Heber Ma DO (Electronically Signed) Final Date:10 June 2018 18:33
--- NOTE | 2018-06-10 20:55 | MB ---
cc: Vadim Chand MD, PhD DATE: 06/10/2018 REASON FOR CONSULTATION: Stroke. HISTORY OF PRESENT ILLNESS: Ms. Craven is a 58-year-old woman who the night before last developed left-sided weakness. It was worse yesterday morning. She came to the hospital last night as a stroke alert. She was beyond the 4-1/2 hour window for tPA and was evaluated for possible intervention. Her evaluation at that time showed a CT of the brain, which was normal. CTA brain was within normal limits. No large vessel occlusion. CTA neck was normal. The patient was felt not to be a candidate for intervention, given these results. She reports improvement in left-sided strength today. PAST MEDICAL HISTORY: She has a history of Guillain-Belhaven syndrome, lumbar stenosis, a spinal stimulator in place, hyperlipidemia, hypothyroidism, hypertension, diabetes. MEDICATIONS AT HOME: 1. Aspirin 325 mg daily. 2. Elavil 50 mg daily. CURRENT MEDICATIONS: She is on: 1. Tylenol 2. Elavil 50 mg daily. 3. Aspirin 325 mg daily. 4. Lasix 20 mg daily. 5. Neurontin 600 mg t.i.d. 6. Insulin p.r.n. 7. Synthroid 150 mcg daily. 8. Oramorph p.r.n. 9. Zofran p.r.n. 10. Protonix 40 mg daily. 11. Klor-Con 10 mEq b.i.d. 12. Pravachol 40 mg daily. 13. Effexor XR 150 mg daily. NEUROLOGICAL EXAMINATION: VITAL SIGNS: Blood pressure is 120/65, pulse 69, respirations 20, temperature 98 degrees. NEUROLOGIC: Higher cortical functions are normal. Cranial nerves are intact. Motor: She has mild weakness, left arm and left leg, rated at 4/5, with normal strength on the right. Reflexes are symmetric. LABORATORY DATA: The white count is 8800, hemoglobin 11.8, hematocrit 36%, platelet count 399,000. PT 10.2, INR 1, aPTT 26. Sodium is 137, potassium 4.6, chloride 106, CO2 24.9, BUN is 19, creatinine 1.07. Cholesterol 132, LDL 74, triglycerides 126. IMPRESSION: Right hemisphere stroke. As noted above, she was not a tPA candidate or intervention candidate. RECOMMENDATIONS: Start Plavix 75 mg daily. She did have an echocardiogram done, which is reviewed showing EF of 60-65%, trace tricuspid valve regurgitation. Left ventricle is normal size. No thrombus identified. Right ventricle normal. Left atrium, normal. Right atrium, normal. Aorta, normal. RECOMMENDATIONS: Add Plavix 75 mg daily. Consider transesophageal echocardiography, given her relative young age. Also, check labs for hypercoagulable state. Vadim Chand MD, PhD BLAISE/yudith , 07:59 PM , 08:06 PM
--- NOTE | 2018-06-10 20:57 | MB ---
cc: Vadim Chand MD, PhD DATE: 06/10/2018 ADDENDUM: If no etiology is identified, the patient would likely benefit from an outpatient loop recorder to rule out atrial fibrillation. Vadim Chand MD, PhD BLAISE/yudith , 08:00 PM , 08:03 PM
[2018-06-11] MEDS: Acetaminophen 325 MG Tablet PO PRN (02:13)
[2018-06-11] MEDS: Sod Chloride 0.9% Inj 1,000 ML IV.CONT SCH ×2 (02:18→17:15)
[2018-06-11] MEDS: Morphine Sulfate 60 MG SR Tablet PO SCH ×3 (06:45→22:16)
[2018-06-11] MEDS: Levothyroxine 150 MCG Tablet PO SCH (06:45)
[2018-06-11] MEDS: Insulin NovoLOG Aspart Correctional Sugar Inj SQ SCH ×4 (09:23→21:00)
[2018-06-11] MEDS: Venlafaxine XR 75 MG Capsule PO SCH (09:39)
[2018-06-11] MEDS: Furosemide 20 MG Tablet PO SCH (09:40)
[2018-06-11] MEDS: Gabapentin 300 MG Capsule PO SCH ×3 (09:40→17:19)
[2018-06-11] MEDS: Amitriptyline 25 MG Tablet PO SCH (09:41)
[2018-06-11] MEDS: Aspirin 325 MG Tablet PO SCH (09:41)
--- NOTE | 2018-06-11 10:37 | P.PNIM ---
Subjective Interval history: Follow-up visit possible stroke, urinary tract infection. Patient seen and examined today. States she is doing a lot better. States that her confusion is actually improved. Complains of dysuria. Denies any fevers or chills overnight. Denies nausea, vomiting, diarrhea, abdominal pain or cramping. Denies shortness of breath or dyspnea. On O2 nasal cannula patient states that she is not using any oxygen at home. States she feels fine. Denies chest pain , palpitations, headaches, dizziness. Physical Exam Vital signs: Vital Signs 06/10/18 12:00 06/10/18 12:23 06/10/18 16:00 Temperature 99.0 F 98.3 F Pulse Rate 68 84 69 Respiratory Rate 20 20 Blood Pressure 96/55 L 120/65 Pulse Oximetry 98 93 L 06/10/18 17:42 06/10/18 20:00 06/10/18 21:15 Temperature 99.2 F Pulse Rate 82 Respiratory Rate 20 Blood Pressure 118/66 Pulse Oximetry 93 L 94 L 95 06/11/18 00:00 06/11/18 00:30 06/11/18 04:00 Temperature 98.8 F 98.4 F Pulse Rate 76 70 Respiratory Rate 18 19 18 Blood Pressure 107/53 L 105/56 L Pulse Oximetry 95 95 06/11/18 04:47 06/11/18 07:20 06/11/18 09:07 Temperature 98.5 F Pulse Rate 67 Respiratory Rate 19 18 Blood Pressure 110/52 L Pulse Oximetry 98 96 06/11/18 09:17 06/11/18 09:57 Temperature Pulse Rate 63 Respiratory Rate Blood Pressure Pulse Oximetry 96 Intake & Output 06/10/18 06/11/18 06/11/18 18:59 06:59 18:59 Intake Total 1999 900 / 900 Output Total 750 / 750 Balance 1250 / 1250 900 / 900 Weight 116.8 kg Intake: IV 1999 900 / 900 NS Inj 1,000 ML @ 70 mls/hr IV. 1999 900 / 900 CONT .[id number] [facility] Rx#:[id number] Output: Urine 750 / 750 Other: # Voids 1 1 Date of Last Bowel Movement 06/10/18 Narrative: GENERAL: This is an obese female, well-developed patient, in no apparent distress. SKIN: Warm and dry. HEENT: Normocephalic. Pupils equal round and reactive. Nose without bleeding. Airway patent. NECK: Trachea midline. CARDIOVASCULAR: Regular rate and rhythm without murmurs, gallops, or rubs. RESPIRATORY: Clear to auscultation. Breath sounds equal bilaterally. No wheezes , rales, or rhonchi. GASTROINTESTINAL: Abdomen soft, non-tender, nondistended. Bowel Sounds normoactive x4. MUSCULOSKELETAL: Extremities without clubbing, cyanosis, or edema. NEUROLOGICAL: Awake and alert. Left-sided weakness upper and lower extremities , 3/5. Moves all extremities. Normal speech. Results - Labs CBC & Chem 7: 06/09/18 19:50 06/10/18 05:38 Laboratory Results - last 24 hr 06/09/18 06/10/18 06/10/18 20:52 05:38 12:20 POC Glucose 199 H Hemoglobin A1c 6.4 H Urine Color Yellow Urine Clarity Hazy H Urine pH 5.0 Ur Specific [place] 1.016 Urine Protein Negative Urine Glucose (UA) Negative Urine Ketones Negative Urine Occult Blood Small H Urine Nitrate Positive H Urine Bilirubin Negative Urine Urobilinogen Less than 2 Ur Leukocyte Esterase Large H Urine RBC 2 Urine WBC 45 H Urine WBC Clumps Rare H Ur Squamous Epith Cells <1 Urine Bacteria Few H Micro UA Comment Culture indicated Urine Culture Comments Culture indicated 06/10/18 06/10/18 06/11/18 17:03 21:05 09:21 POC Glucose 79 135 H 96 Hemoglobin A1c Urine Color Urine Clarity Urine pH Ur Specific [place] Urine Protein Urine Glucose (UA) Urine Ketones Urine Occult Blood Urine Nitrate Urine Bilirubin Urine Urobilinogen Ur Leukocyte Esterase Urine RBC Urine WBC Urine WBC Clumps Ur Squamous Epith Cells Urine Bacteria Micro UA Comment Urine Culture Comments Microbiology 06/09/18 20:52 Clean Catch Urine Urine Culture - Final Escherichia coli Assessment and Plan - Plan pleasant 58-year-old female with a history of hypertension, hyperlipidemia, hypothyroidism, diabetes mellitus chronic back pain, 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 Patient also apparently had facial droop, slurred speech as well as left-sided weakness. She underwent CT studies. However MRI was not done due to presence of a spinal stimulator. Possible acute stroke Neurology consultation pending. Continue aspirin 325 mg p.o. daily, pravastatin 40 mg p.o. daily -PT/OT/Speech therapy. -Neurology following. Recommending ORLY. -ORLY to be done today. Cardiology consulted, appreciate recommendations. Plan for loop recorder in the outpatient Urinary tract infection -Reports dysuria -Gram-negative rods greater than 100,000 -Start Cipro twice daily, allergic to penicillin Diabetes mellitus Peripheral neuropathy Hypothyroidism Anxiety/Depression -Continue Gabapentin, Amitriptyline, Venlafaxine, Levothyroxine -Continue sliding scale insulin. Goal BG 140-180. -Hemoglobin A1c 6.4. This is been discussed extensively with patient. States that she is taking metformin at home. Recent hemoglobin A1c about 3-4 weeks ago was 5.8. Full code. SCDs. Code Status: Full Code Discussed Condition With: Patient, nursing, Dr. Holt Discharge Planning: Plan to DC home tomorrow, pending final cultures of urine.
[2018-06-11] MEDS: Ciprofloxacin 500 MG Tablet PO SCH ×2 (12:11→22:17)
--- NOTE | 2018-06-11 13:52 | MB ---
cc: Jose Neely MD DATE: 06/11/2018 REASON FOR CONSULTATION: Possible transesophageal echocardiography. HISTORY OF PRESENT ILLNESS: The patient is a 58-year-old white female with a history of diabetes, hypertension, nephrolithiasis, chronic back and leg pain, Guillain-Seneca syndrome 7 years ago, who presented to the hospital with increased left-sided weakness. She has been referred for possible transesophageal echocardiography, possibly a loop recorder. The patient denies shortness of breath, palpitations, lightheadedness, syncope, near syncope, paroxysmal nocturnal dyspnea. Chronically, she has mild intermittent pedal edema. Infrequently, she experiences fleeting substernal chest tightness with no relationship to exertion or emotional stress. PAST MEDICAL HISTORY: 1. Diabetes. 2. Hypertension. 3. Normal cardiac catheterization 03/16/2007. 4. Nephrolithiasis. 5. Chronic leg and back pain with history of spinal stimulator placement. 6. Guillain-Seneca syndrome about 7 years ago. 7. Hypothyroidism. PAST SURGICAL HISTORY: 1. Hysterectomy. 2. Hernia repair. CARDIAC MEDICATIONS AT HOME: 1. Furosemide 20 mg daily. 2. Potassium chloride 10 mEq b.i.d. 3. Lovastatin 40 mg at bedtime. 4. Losartan 50 mg daily. ALLERGIES: PENICILLIN AND EGGS. FAMILY HISTORY: The patient's father from congestive heart failure in his 40s. She has a brother who sustained myocardial infarctions in his 50s. SOCIAL HISTORY: The patient smokes about a pack of cigarettes per day. She denies alcohol abuse. REVIEW OF SYSTEMS: As in the history of present illness, otherwise negative or noncontributory. She also denies headache, abdominal pain, melena, dyspepsia, bright red blood per rectum. PHYSICAL EXAMINATION: VITAL SIGNS: Her blood pressure 110/52 with a pulse of 63, respirations 18. GENERAL: She is a well-developed, well-nourished white female, in no acute distress. HEENT: Jugular venous pressure is normal. Carotid pulses are 2+ bilaterally and without bruits. CHEST: Reveals clear lung enrique. CARDIAC: She has a regular rhythm and rate without S3, S4, or murmur. ABDOMEN: She has a soft, obese, nontender abdomen. Bowel sounds are present. There is no definite hepatosplenomegaly. EXTREMITIES: Reveals no clubbing, cyanosis or edema. DIAGNOSTIC DATA: EKG shows sinus rhythm, normal EKG. Chest x-ray shows no acute disease. LABORATORY DATA: Normal CBC. Potassium 4.6, BUN 19, creatinine 1.07. Total cholesterol 132, LDL 74, HDL 33, triglycerides 126. ASSESSMENT AND PLAN: 58-year-old white female with a history of diabetes, hypertension, hyperlipidemia, Guillain-Seneca syndrome, nephrolithiasis, admitted with acute neurological symptoms. She has been referred for transesophageal echocardiography to rule out a cardiac source of embolism. I would agree with the need for this procedure. The nature of transesophageal echocardiography and the potential risks have been outlined. She agrees to proceed. With respect to implantation of a loop recorder, I have found that the loop recorders have potentially very poor P-wave sensitivity and benign rhythms such as sinus rhythm with premature atrial complexes can be misinterpreted as atrial fibrillation. RECOMMENDATIONS: 1. Transesophageal echocardiography today. 2. Instead of a loop recorder at this time, I would recommend an outpatient 3-week monitor. ADDENDUM: Transesophageal echo today is completely normal. Will follow up as needed. The patient can contact my office to set up a 3 week Cardionet monitor. MD ORI Jameson/brent , 01:35 PM , 01:43 PM [email or web address]
[2018-06-11] MEDS ORDERED: fentaNYL Citrate Inj 100 MCG/2 ML Ampul ONE (13:59)
--- NOTE | 2018-06-11 20:53 | P.PNNEU ---
Subjective Subjective Comments: no new sx.She feels left strength improving Active Medications: Active Medications Acetaminophen (Tylenol) 650 mg PO Q4H PRN PRN Reason: HEADACHE OR TEMP > 101 F Last Admin: 06/11/18 02:13 Dose: 650 mg Amitriptyline HCl (Elavil) 50 mg PO DAILY [facility] Last Admin: 06/11/18 09:41 Dose: 50 mg Aspirin (Aspirin) 325 mg PO DAILY [facility] Last Admin: 06/11/18 09:41 Dose: Not Given Ciprofloxacin HCl (Cipro) 500 mg PO Q12H [facility] Last Admin: 06/11/18 12:11 Dose: 500 mg Clopidogrel Bisulfate (Plavix) 75 mg PO DAILY [facility] Last Admin: 06/11/18 09:41 Dose: Not Given Dextrose (D50w Vial) 50 ml IV.PUSH UNSCH PRN PRN Reason: PER HYPOGLYCEMIA PROTOCOL Furosemide (Lasix) 20 mg PO DAILY [facility] Last Admin: 06/11/18 09:40 Dose: 20 mg Gabapentin (Neurontin) 600 mg PO TID [facility] Last Admin: 06/11/18 17:19 Dose: 600 mg Glucagon (Glucagon Inj) 1 mg OTHER UNSCH PRN PRN Reason: for Hypoglycemia Protocol Sodium Chloride (Ns Inj) 1,000 mls @ 70 mls/hr IV.CONT .[id number] [facility] Last Admin: 06/11/18 17:15 Dose: 70 mls/hr Insulin Aspart (Novolog Insulin Correctional Sugar Inj) 0 unit SQ ACHS [facility]; Protocol Last Admin: 06/11/18 17:15 Dose: Not Given Levothyroxine Sodium (Synthroid) 150 mcg PO DAILY@0600 [facility] Last Admin: 06/11/18 06:45 Dose: 150 mcg Morphine Sulfate (Oramorph Sr) 60 mg PO Q8H [facility] Last Admin: 06/11/18 15:12 Dose: 60 mg Ondansetron HCl (Zofran Inj) 4 mg IV.PUSH Q6H PRN PRN Reason: NAUSEA Last Admin: 06/10/18 03:57 Dose: 4 mg Pantoprazole Sodium (Protonix) 40 mg PO DAILY [facility] Last Admin: 06/11/18 09:39 Dose: 40 mg Potassium Chloride (Klor-Con 10) 10 meq PO BID [facility] Last Admin: 06/11/18 09:39 Dose: 10 meq Pravastatin Sodium (Pravachol) 40 mg PO Q24H [facility] Last Admin: 06/11/18 17:19 Dose: 40 mg Sodium Chloride (Ns Flush) 2 ml IV.FLUSH BID [facility] Last Admin: 06/11/18 09:23 Dose: 2 ml Sodium Chloride (Ns Flush) 2 ml IV.FLUSH PRN PRN PRN Reason: FLUSH AFTER USING IV ACCESS Venlafaxine HCl (Effexor Xr) 150 mg PO DAILY [facility] Last Admin: 06/11/18 09:39 Dose: 150 mg Allergies/Adverse Reactions: Allergies Allergy/AdvReac Type Severity Reaction Status Date / Time egg Allergy Severe Anaphylaxis Verified 06/09/18 23:23 penicillin G Allergy Severe THROAT Verified 06/09/18 23:23 SWELLS *MDRO Multi-Drug Resistant AdvReac Unknown Anaphylaxis Uncoded 06/09/18 23:23 Organism Physical Exam Vital signs: Vital Signs 06/10/18 21:15 06/11/18 00:00 06/11/18 00:30 Temperature 98.8 F Pulse Rate 76 Respiratory Rate 18 19 Blood Pressure 107/53 L Pulse Oximetry 95 95 Pulse Oximetry [Exertion on Room Air] Pulse Oximetry [Resting on Room Air] 06/11/18 04:00 06/11/18 04:47 06/11/18 07:20 Temperature 98.4 F 98.5 F Pulse Rate 70 67 Respiratory Rate 18 19 18 Blood Pressure 105/56 L 110/52 L Pulse Oximetry 95 98 Pulse Oximetry [Exertion on Room Air] Pulse Oximetry [Resting on Room Air] 06/11/18 09:07 06/11/18 09:17 06/11/18 09:57 Temperature Pulse Rate 63 Respiratory Rate Blood Pressure Pulse Oximetry 96 96 Pulse Oximetry [Exertion on Room Air] Pulse Oximetry [Resting on Room Air] 06/11/18 11:35 06/11/18 15:05 06/11/18 17:28 Temperature 98.7 F 98.8 F Pulse Rate 68 67 Respiratory Rate 17 18 Blood Pressure 124/74 118/58 L Pulse Oximetry 93 L 94 L Pulse Oximetry [Exertion on Room Air] 90 L Pulse Oximetry [Resting on Room Air] 98 06/11/18 19:53 Temperature 98.5 F Pulse Rate 82 Respiratory Rate 20 Blood Pressure 101/50 L Pulse Oximetry 97 Pulse Oximetry [Exertion on Room Air] Pulse Oximetry [Resting on Room Air] Intake & Output 06/11/18 06/11/18 06/12/18 06:59 18:59 06:59 Intake Total 900 / 900 1000 / 1000 Balance 900 / 900 1000 / 1000 Weight 116.8 kg Intake: IV 900 / 900 1000 / 1000 NS Inj 1,000 ML @ 70 mls/hr IV. 900 / 900 1000 / 1000 CONT .[id number] [facility] Rx#:[id number] Other: # Voids 1 2 Date of Last Bowel Movement 06/10/18 - Routine Neurological Exam alert, speech normal, follows commands' CN 2-12 normal MOTOR 5/5 BUE and BLE Objective Laboratory Results - last 24 hr 06/10/18 06/11/18 06/11/18 21:05 09:21 12:12 POC Glucose 135 H 96 89 06/11/18 17:14 POC Glucose 153 H Microbiology 06/09/18 20:52 Urine Culture - Final Clean Catch Urine Escherichia coli Diagnostic Tests: ORLY today is normal Review/Management - Review/Management Plan: cva--improving recommend outpatient 3 week school bus monitor
[2018-06-12 01:22] VITALS: RESP 18
[2018-06-12 05:33] VITALS: TEMP 97.8
[2018-06-12] MEDS: Morphine Sulfate 60 MG SR Tablet PO SCH (05:33)
[2018-06-12] MEDS: Levothyroxine 150 MCG Tablet PO SCH (05:33)
[2018-06-12 07:55] VITALS: BP 128/73; PULSE 65; O2SAT 96
--- NOTE | 2018-06-12 08:32 | P.DS ---
Date of admission: 06/09/18 21:27 Primary care physician: Fady Kelly MD Attending physician on discharge: Brendon Holt Anticipated date of discharge: 06/12/18 Brief History from admission: 58-year-old female with a past medical history significant for hypertension, hyperlipidemia, hypothyroidism, chronic back pain with spinal stimulator, diabetes mellitus, history of Guyon Adams and neuropathy presents to the emergency department for the evaluation of confusion and weakness. The patient reports that her symptoms began last night with confusion and headache. Her daughter, who is bedside, reports that her mother began acting confused and forgetting recent conversations starting early this morning. The patient reports she has dizziness which she describes as constant and states that it is "like being on a boat". Around 6:00 this morning the patient began to notice left upper and lower extremity weakness and was unable to ambulate as she could not lift her left leg. Her daughter states she had left sided ptosis and facial droop with accompanying slurred speech. The patient denies any chest pain or shortness of breath. No abdominal pain. No nausea/vomiting/diarrhea. No fever/chills. Patient update on day of discharge: Follow-up visit possible stroke, urinary tract infection. Patient seen and examined today. States she is doing well. Improving strength on the left extremities denies nausea, vomiting, diarrhea, abdominal pain or cramping. Denies shortness of breath or dyspnea. Denies chest pain, palpitations, headaches, dizziness. DS: Diagnosis - Discharge Diagnosis (1) Acute cerebrovascular accident (CVA) Status: Acute (2) UTI (urinary tract infection) due to Enterococcus Status: Acute (3) Encephalopathy acute Status: Acute DS: Medications - Discharge Medications Prescriptions: aspirin 325 mg PO DAILY #30 tab ciprofloxacin HCl 500 mg PO Q12H 6 Days #12 tab clopidogrel [Plavix] 75 mg PO DAILY #30 tab losartan 25 mg PO DAILY #30 tab DS: Summary Hospital Course: [place] 58-year-old female with a history of hypertension, hyperlipidemia, hypothyroidism, diabetes mellitus chronic back pain, 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 Patient also apparently had facial droop, slurred speech as well as left-sided weakness. She underwent CT studies. MRI was not done due to presence of a spinal stimulator. Suspicion for acute stroke. Patient was followed by neurologist Dr. Chand. Recommends continued use of aspirin 325 mg daily, pravastatin 40 mg. She was also recommended for ORLY. Patient was also followed by parking meter collector Dr. Neely. ORLY was done and read as completely normal. [facility] recommend that instead of a loop recorder at this time, an outpatient 3-week monitor in his office will be done. This is been discussed and explained with patient. Patient also found to have urinary tract infection, qwhich may have contributed to her confusion and encephalopathy. Started on Cipro which is sensitive to the cultures coming back as E. coli. Discussed with patient to continue with antibiotics. Comorbid conditions such as diabetes, peripheral neuropathy, hypothyroidism, anxiety, depression has also been managed by continuing patient's medication from home. Her latest hemoglobin A1c was checked at 6.4. This is been extensively discussed with patient to continue diet, exercise, and use of metformin and outpatient to be followed by her PCP. Significantly improved left upper extremity and lower extremity weakness compared to admission. Patient states that because of Lori Adams left sided weakness have been present and is now back to almost baseline. PT/OT recommends home health with PT OT to continue to improvement. Patient has met maximal benefits of hospitalization. Clinically stable for discharge. Will DC with HHC, OT/PT. patient will need to follow-up with her PCP , Dr. Neely, her own neurologist Dr. Meneses. - Time Spent with Patient Total time spent providing and/or coordinating discharge services: Greater than 30 minutes - Quality: Stroke Last date observed well: 06/08/18 Last time observed well: 22:00 - Quality: VTE Deep Vein Thrombosis/Pulmonary Embolism Present on Admission: No Exam Vital signs: Vital Signs 06/11/18 09:07 06/11/18 09:17 06/11/18 09:57 Temperature Pulse Rate 63 Respiratory Rate Blood Pressure Pulse Oximetry 96 96 Pulse Oximetry [Exertion on Room Air] Pulse Oximetry [Resting on Room Air] 06/11/18 11:35 06/11/18 15:05 06/11/18 17:28 Temperature 98.7 F 98.8 F Pulse Rate 68 67 Respiratory Rate 17 18 Blood Pressure 124/74 118/58 L Pulse Oximetry 93 L 94 L Pulse Oximetry [Exertion on Room Air] 90 L Pulse Oximetry [Resting on Room Air] 98 06/11/18 19:53 06/11/18 20:00 06/12/18 01:21 Temperature 98.5 F 97.9 F Pulse Rate 82 65 Respiratory Rate 20 18 Blood Pressure 101/50 L 103/55 L Pulse Oximetry 97 95 95 Pulse Oximetry [Exertion on Room Air] Pulse Oximetry [Resting on Room Air] 06/12/18 05:33 06/12/18 07:26 06/12/18 07:55 Temperature 97.8 F 97.8 F Pulse Rate 68 65 Respiratory Rate 18 18 Blood Pressure 107/69 128/73 Pulse Oximetry 92 L 94 L 96 Pulse Oximetry [Exertion on Room Air] Pulse Oximetry [Resting on Room Air] Intake & Output 06/11/18 06/12/18 06/12/18 18:59 06:59 18:59 Intake Total 1000 / 1000 Balance 1000 / 1000 Intake: IV 1000 / 1000 NS Inj 1,000 ML @ 70 mls/hr IV. 1000 / 1000 CONT .[id number] Rx#:[id number] Other: # Voids 2 1 Date of Last Bowel Movement 06/10/18 Narrative: GENERAL: This is an morbidly obese female, well-developed patient, in no apparent distress. SKIN: Warm and dry. HEENT: Normocephalic. Pupils equal round and reactive. Nose without bleeding. Airway patent. NECK: Trachea midline. CARDIOVASCULAR: Regular rate and rhythm without murmurs, gallops, or rubs. RESPIRATORY: Clear to auscultation. Breath sounds equal bilaterally. No wheezes , rales, or rhonchi. GASTROINTESTINAL: Abdomen soft, non-tender, nondistended. Bowel Sounds normoactive x4. MUSCULOSKELETAL: Extremities without clubbing, cyanosis, or edema. NEUROLOGICAL: Awake and alert. Left-sided weakness upper and lower extremities , 3/5. Moves all extremities. Normal speech. Results Procedures completed during hospitalization: ORLY 06/11/18 Labs on day of discharge: Labs from last 24 hours 06/12/18 06/11/18 06/11/18 07:56 22:26 17:14 POC Glucose 104 115 H 153 H 06/11/18 06/11/18 12:12 09:21 POC Glucose 89 96 - Impressions ITS Impressions Head CT 06/09/18 19:54 CONCLUSION: 1. Negative CT Head non contrast. Report was called by [Dr. Bright to Dr. Kenny at 8:11 PM on June 09, 2018. ] Chest X-Ray 06/09/18 19:59 CONCLUSION: Clear lungs. Head CTA 06/09/18 20:04 CONCLUSION: 1. Negative CTA Head. Report was called by [Dr. Bright to Dr. Anders at 8:20 PM on June 09, 2018. ] Neck CTA 06/09/18 20:04 CONCLUSION: 1. Negative CTA Carotid. 2. Report called to Dr. Anders at 8:20 PM on June 09, 2018. Discharge Plan - Discharge Disposition Patient Disposition: Disch /Home Health Service - Discharge Condition Condition: Stable - Discharge Order Discharge Orders: Discharge Order (Routine); Ordered 06/12/18 Ordered By: Mell Rodriguez - Physicians Team Primary Care Provider: Fady Kelly Attending Provider: Brendon Holt Other Providers: Vadim Chand MD, PhD ; Valeria Benites MD ; Heber Ma DO
--- NOTE | 2018-06-12 08:49 | P.DCO ---
- Physical Therapy Order: Evaluate and treat - Occupational Therapy Order: Evaluate and treat - Home Health Nursing Order: Signs/symptoms of disease process, Medication education-adverse effect, Nursing assessment with vital signs - Case Management Consult Case Management Consult-Home Health: Yes - Certification I have seen patient Yarely Matos on 06/12/18. My clinical findings support the need for the requested home health care services because: Deconditioned with increased weakness, High risk of falls I certify that my clinical findings support that this patient is homebound because: Unsteady gait/balance, Poor cardiac reserve
[2018-06-12] MEDS: Furosemide 20 MG Tablet PO SCH (09:08)
[2018-06-12] MEDS: Gabapentin 300 MG Capsule PO SCH (09:09)
[2018-06-12] MEDS: Venlafaxine XR 75 MG Capsule PO SCH (09:09)
[2018-06-12] MEDS: Aspirin 325 MG Tablet PO SCH (09:09)
[2018-06-12] MEDS: Amitriptyline 25 MG Tablet PO SCH (09:10)
[2018-06-12] MEDS: Insulin NovoLOG Aspart Correctional Sugar Inj SQ SCH (09:11)
[2018-06-12] MEDS: Sod Chloride 0.9% Inj 1,000 ML IV.CONT SCH (09:11)
--- NOTE | 2018-06-12 11:51 | HM ---
Date Performed: 06/10/2018 Time Performed: 08:51:00 HOOKUP DATE: 06/10/18 08:51:00 AM Wed ANALYSIS START TIME: 06/10/2018 8:56:00 AM ANALYSIS END TIME: 06/11/2018 9:00:00 AM PATIENT AGE: 58 PATIENT HEIGHT PATIENT WEIGHT DRUG LIST PATIENT DIAGNOSIS: acute CVA TEST NARRATIVE: The patient's average heart rate was 76 BPM. No episodes of tachycardia wer e noted. No episodes of bradycardia were noted. No pauses exceeding 2.0 seconds were noted. 26 ventricular ectopics, which represented < 1% of the total beat count, were noted. The highest randy tricular ectopic frequency occurred from 06:00 PM to 07:00 PM Wed. During this time 4 VE(s) occurred . Ventricular ectopics were observed as 26 isolated beat(s) only. No couplets or runs were noted. 28 supraventricular ectopics, which represented < 1% of the total beat count, were noted. The hig hest supraventricular ectopic frequency occurred from 05:00 PM to 06:00 PM Wed. During this time 4 S VE(s) occurred. No episodes of ST depression (defined as -1.0 mm or more) were noted in channel [address] . No episodes of [address] depression (defined as -1.0 mm or more) were noted in channel 2. No episodes of ST depression (defined as -1.0 mm or more) were noted in channel 3. TEST INTERPRETATION: Sinus rhythm Rare to occasional premature atrial and ventricular complexes and singlets Rare short atrial runs of 1-5 beats. Signed by : Ayo nunez
[2018-06-13 12:51] LABS: Protein C Antigen 90 % (70-150); Protein S Antigen Free 110 % (65 - 160)
[2018-06-14 07:53] LABS: Dil Russell Viper Venom Conf ( ND (NEGATIVE); Dil Russell Viper Venom Time M ND (CORRECTED); Lupus Anticoagulant PTT Screen 29 seconds (< OR = 40)
[2018-06-15 15:30] LABS: Factor V Leiden Mutation Negative (Negative)
== END 2018-06-12 09:58 | disposition home health service (06) ==
LOC: NEPE 19:37 → NEDA 21:27 → N05 22:54
PROVIDERS: ADMIT Hospitalist; ATTEND Hospitalist